=== PATIENT | male | born 1940 | race Caucasian/White ===

== ENCOUNTER 2017-01-09 03:15 | Observation (INO) ==
[2017-01-09] MEDS ORDERED: Furosemide 40 MG/4 ML VIAL IVP ONE (03:23)
--- NOTE | 2017-01-09 03:26 | Emergency Department Note ---
Disposition Clinical Impression: CHF (congestive heart failure) Qualifiers: Congestive heart failure type: systolic Congestive heart failure chronicity: acute Qualified Code(s): I50.21 - Acute systolic (congestive) heart failure Disposition: Admitted As Inpatient Condition: Good Referrals: Kamron Koch MD [Primary Care Provider] - Forms: ED Satisfaction Letter Time of Disposition: 06:09 SOB HPI - General Chief Complaint: ED Shortness of Breath/Dyspnea Stated Complaint: SHORT OF BREATH Time Seen by Provider: 01/09/17 03:20 Source: patient Mode of arrival: ambulatory Limitations: no limitations Nursing Notes Reviewed: Yes Vital Signs Reviewed: Yes - History of Present Illness 76-year-old white male with difficulty breathing. He denies cough. He denies chest pain. He states his symptoms started approximately 3 weeks ago. He states he is only able to sleep a couple hours at night. He says he has trouble lying down and sleeping, shortness of breath gets worse. He states he saw his primary care physician who did a CT scan this past Friday. No fever. No abdominal pain. No leg swelling. Pt Subjective Complaint: shortness of breath Onset (ago): week(s) (3) Context: other (History of atrial fibrillation) Severity: moderate Consistency/Duration: intermittent Improves with: upright position Worsens with: lying flat Known history of: other (Atrial fibrillation) Associated symptoms: Reports: denies other symptoms Treatment prior to arrival: none Cough present: No - Related Data Home oxygen amount: none Home Medications Medication Instructions Recorded Confirmed Aspirin 325 mg PO DAILY 05/18/15 01/09/17 Atorvastatin [Lipitor] 40 mg PO HS 05/18/15 01/09/17 Isosorbide MONOnitrate (24 HR) 30 mg PO DAILY 05/18/15 01/09/17 [Imdur] Losartan Potassium [Cozaar] 100 mg PO DAILY 05/18/15 01/09/17 Rivaroxaban [Xarelto] 20 mg PO DAILY 05/18/15 01/09/17 Previous Rx's Medication Instructions Recorded Bumetanide [Bumex] 0.5 mg PO DAILY #30 tablet 05/20/15 Lactobacillus [Culturelle] 1 each PO BID #10 cap.sprink 05/20/15 Metoprolol [Lopressor] 100 mg PO BID #60 tablet 05/20/15 Allergies Allergy/AdvReac Type Severity Reaction Status Date / Time No Known Allergies Allergy Verified 01/09/17 03:17 All systems ED: reviewed and negative except as stated. Constitutional: Denies: fever, chills ENT ED: Denies: ear pain, throat pain Cardiovascular: Denies: chest pain Respiratory: Reports: dyspnea, wheezes. Denies: cough Gastrointestinal: Denies: abdominal pain, nausea, vomiting, diarrhea Genitourinary: Denies: urgency, dysuria Musculoskeletal: Denies: back pain, neck pain Past Medical History - Past Medical History Medical history: Reports: arthritis, atrial fibrillation, CHF, coronary artery disease, GERD, hyperlipidemia, hypertension, other Surgical history: Reports: coronary bypass (CABG) Psychiatric history: Reports: no psych history - Social History Smoking Status: Never smoker Smokeless Tobacco Status: No Alcohol use: Reports: none Drug use: Reports: none Physical Exam - General Limitations: no limitations General appearance: alert, in no apparent distress - Head Head exam: atraumatic, normocephalic - Eye Eye exam: Present: PERRL, EOMI. Absent: scleral icterus, conjunctival injection - ENT ENT exam: normal oropharynx, mucous membranes moist, TM's normal bilaterally - Neck Neck exam: Present: normal inspection, full ROM, trachea midline. Absent: tenderness, lymphadenopathy - Chest Chest inspection: Present: normal inspection, symmetric chest wall rise - Respiratory Respiratory exam: Present: other (Decreased breath sounds in the bases). Absent : respiratory distress, wheezes, stridor, accessory muscle use, prolonged expiratory phase - Cardiovascular Cardiovascular exam: Present: regular rate, irregular rhythm. Absent: systolic murmur, diastolic murmur, gallop - Abdominal Exam Abdominal exam: Present: soft, Non-Tender. Absent: organomegaly, mass - Extremities Exam Extremities exam: Present: normal inspection, full ROM, normal capillary refill. Absent: tenderness - Neurological Exam Neurological exam: Present: alert, oriented X3, normal gait. Absent: motor sensory deficit - Psychiatric Psychiatric exam: Present: normal affect, normal mood - Skin Skin exam: Present: warm, dry, intact, normal color Course - Reevaluation(s) Reevaluation #1: He is diuresed well with Lasix. He clinically felt better. His O2 saturations are good. His heart rate remained between 90 and 1:15. His initial troponin was 0.03, his repeat troponin was 0.04. He has never had any chest pain. Had the difficulty breathing on and off for 3 weeks, primarily at night. My index of concern for an N STEMI is low. I discussed the case with Dr. Méndez. He is agreeable with observation admission. The patient and family are agreeable. Time: 06:08 Vital Signs Temperature 98.8 F 01/09/17 03:19 Pulse Rate 88 01/09/17 03:19 Respiratory Rate 24 01/09/17 03:19 Blood Pressure 168/119 01/09/17 03:19 O2 Sat by Pulse Oximetry 93 01/09/17 03:19 Temperature 98.8 F 01/09/17 04:41 Pulse Rate 105 01/09/17 06:04 Respiratory Rate 16 01/09/17 05:21 Blood Pressure 155/103 01/09/17 06:04 O2 Sat by Pulse Oximetry 98 01/09/17 06:04 Oxygen Delivery Oxygen Delivery Room Air Shortness of Breath/Dyspnea - MDM Narrative Medical decision making narrative: Differential includes but is not limited to pleural effusion, congestive heart failure, pneumonia, pneumothorax, pneumonia, pulmonary embolus. - Lab Data Lab results reviewed: Yes I reviewed the patient's lab results. Result diagrams: 01/09/17 03:34 01/09/17 03:34 Lab Results 01/09/17 01/09/17 01/09/17 Range/Units 03:34 03:34 03:34 WBC 7.4 (4.3-11.1) K/mcL RBC 4.29 (4.19-5.50) M/mcL Hgb 13.5 (12.9-16.9) g/dL Hct 41.7 (37.5-50.1) % MCV 97.2 (83.0-100.0) fL MCH 31.5 (28.0-33.3) pg MCHC 32.4 (31.6-35.5) g/dL RDW 14.6 H (11.5-14.5) % Plt Count 247 (140-400) K/mcL MPV 9.6 (9.4-12.4) fL Immature Gran % 0.4 (0-4) % Seg Neutrophils % 80.8 % Lymphocytes % 7.5 % Monocytes % 8.1 % Eosinophils % 2.7 % Basophils % 0.5 % Neutrophils # 6.0 (1.6-8.9) K/mcL Lymphocytes # 0.6 (0.6-4.6) K/mcL Monocytes # 0.6 (0.0-1.3) K/mcL Eosinophils # 0.2 (0.0-0.6) K/mcL Basophils # 0.0 (0.0-0.2) K/mcL PT (9.4-12.1) Seconds INR Sodium 144 (136-145) mEq/L Potassium 4.2 (3.5-4.5) mEq/L Chloride 105 (98-109) mEq/L Carbon Dioxide 27 (19-29) mEq/L BUN 24 (8-26) mg/dL Creatinine 1.04 (0.72-1.25) mg/dL Est GFR ( Amer) > 60 (> 60) Est GFR (Non-Af Amer) > 60 (> 60) BUN/Creatinine Ratio 23 (6-26) Glucose 150 H (70-99) mg/dL Calculated Osmolality 305 H (280-300) Calcium 9.6 (8.6-10.8) mg/dL Total Bilirubin 1.5 H (0.2-1.2) mg/dL AST 20 (5-34) Units/L ALT 17 (0-55) Units/L Alkaline Phosphatase 107 (38-126) Units/L Troponin I 0.03 (0-0.03) ng/mL B-Natriuretic Peptide (0-100) pg/mL Serum Total Protein 7.1 (6.0-8.3) g/dL Albumin 3.5 (3.5-5.0) g/dL Globulin 3.6 H (2.4-3.5) g/dL Albumin/Globulin Ratio 1.0 L (1.1-2.2) 01/09/17 01/09/17 01/09/17 Range/Units 03:34 03:34 05:37 WBC (4.3-11.1) K/mcL RBC (4.19-5.50) M/mcL Hgb (12.9-16.9) g/dL Hct (37.5-50.1) % MCV (83.0-100.0) fL MCH (28.0-33.3) pg MCHC (31.6-35.5) g/dL RDW (11.5-14.5) % Plt Count (140-400) K/mcL MPV (9.4-12.4) fL Immature Gran % (0-4) % Seg Neutrophils % % Lymphocytes % % Monocytes % % Eosinophils % % Basophils % % Neutrophils # (1.6-8.9) K/mcL Lymphocytes # (0.6-4.6) K/mcL Monocytes # (0.0-1.3) K/mcL Eosinophils # (0.0-0.6) K/mcL Basophils # (0.0-0.2) K/mcL PT 29.3 H (9.4-12.1) Seconds INR 2.7 Sodium (136-145) mEq/L Potassium (3.5-4.5) mEq/L Chloride (98-109) mEq/L Carbon Dioxide (19-29) mEq/L BUN (8-26) mg/dL Creatinine (0.72-1.25) mg/dL Est GFR ( Amer) (> 60) Est GFR (Non-Af Amer) (> 60) BUN/Creatinine Ratio (6-26) Glucose (70-99) mg/dL Calculated Osmolality (280-300) Calcium (8.6-10.8) mg/dL Total Bilirubin (0.2-1.2) mg/dL AST (5-34) Units/L ALT (0-55) Units/L Alkaline Phosphatase (38-126) Units/L Troponin I 0.04 H* (0-0.03) ng/mL B-Natriuretic Peptide 2672 H (0-100) pg/mL Serum Total Protein (6.0-8.3) g/dL Albumin (3.5-5.0) g/dL Globulin (2.4-3.5) g/dL Albumin/Globulin Ratio (1.1-2.2) - Radiology Data Radiology results reviewed: Yes I reviewed the patient's radiology results. Impressions Chest X-Ray 01/09/17 03:22 IMPRESSION: Persistent bilateral pleural effusions, please see recent chest CT for further detail. D/ / Tommy Hannah MD / Tommy Hannah MD Interpreting Provider: Tommy Hannah MD - EKG Data EKG attestation: Yes I reviewed and interpreted this EKG. EKG results narrative: Atrial fibrillation, rate of 109, T-wave flattening in the lateral leads. Rhythm strip shows atrial fibrillation with rate of 109, QRS 101 ms with no other ectopy is interpreted by me. This is compared to a tracing dated 05/19/15, the atrial fibrillation is chronic, the T-wave flattening is slightly more pronounced
[2017-01-09 03:41] LABS: Basophils % 0.5 %; Eosinophils # 0.2 K/mcL (0.0-0.6); Eosinophils % 2.7 %; Hematocrit 41.7 % (37.5-50.1); Hemoglobin 13.5 g/dL (12.9-16.9); Immature Granulocytes % 0.4 % (0-4); Lymphocytes # 0.6 K/mcL (0.6-4.6); Lymphocytes % 7.5 %; Mean Corpuscular HGB Conc 32.4 g/dL (31.6-35.5); Mean Corpuscular Hemoglobin 31.5 pg (28.0-33.3); Mean Corpuscular Volume 97.2 fL (83.0-100.0); Mean Platelet Volume 9.6 fL (9.4-12.4); Monocytes # 0.6 K/mcL (0.0-1.3); Monocytes % 8.1 %; Platelet Count 247 K/mcL (140-400); Red Blood Count 4.29 M/mcL (4.19-5.50); Red Cell Distribution Width 14.6 % (11.5-14.5); Segmented Neutrophils % 80.8 %
[2017-01-09 03:46] LABS: INR 2.7; Prothrombin Time 29.3 Seconds (9.4-12.1)
[2017-01-09 03:59] LABS: Alanine Aminotransferase 17 Units/L (0-55); Albumin 3.5 g/dL (3.5-5.0); Alkaline Phosphatase 107 Units/L (38-126); Aspartate Amino Transferase 20 Units/L (5-34); BUN/Creatinine Ratio 23 (6-26); Bilirubin,Total 1.5 mg/dL (0.2-1.2); Blood Urea Nitrogen 24 mg/dL (8-26); Calcium 9.6 mg/dL (8.6-10.8); Carbon Dioxide 27 mEq/L (19-29); Chloride 105 mEq/L (98-109); Globulin 3.6 g/dL (2.4-3.5); Glucose 150 mg/dL (70-99); Osmolality,Calculated 305 (280-300); Potassium 4.2 mEq/L (3.5-4.5); Sodium 144 mEq/L (136-145); Total Protein 7.1 g/dL (6.0-8.3); eGFR For African Americans > 60 (> 60); eGFR For Non-African Americans > 60 (> 60)
[2017-01-09] MEDS ORDERED: Naloxone 0.4 MG/ML INJ IVP PRN (06:38)
[2017-01-09] MEDS ORDERED: Aspirin 325 MG TABLET PO SCH (09:00)
[2017-01-09] MEDS ORDERED: Isosorbide MONOnitrate (24 HR) 30 MG TAB.ER.24H PO SCH (09:00)
[2017-01-09] MEDS: Lactobacillus 1 EACH CAP.SPRINK PO SCH ×2 (09:13→19:53)
[2017-01-09] MEDS ORDERED: Isosorbide MONOnitrate (24 HR) 60 MG TAB.ER.24H PO SCH (11:45)
--- NOTE | 2017-01-09 11:51 | Internal Med History&Physical ---
Date of Encounter: 01/09/17 Time of Encounter: 11:10 Assessment and Plan (1) Dyspnea Current visit: Yes Status: Acute Probably multifactorial in origin with bilateral pleural effusions, significant systolic heart failure, and possible superimposed infection. An echocardiogram will be ordered to further evaluate. IV diuretics will be started with higher dose isosorbide. Lanoxin and/ or spironolactone may be needed. Qualifiers: Dyspnea type: shortness of breath Qualified Code(s): R06.02 - Shortness of breath; R06.00 - Dyspnea, unspecified; R06.01 - Orthopnea (2) Pleural effusion Current visit: Yes Status: Acute Possibly multifactorial origin including systolic heart failure with possible parapneumonic etiology. Will order echo as per above and start Rocephin empirically. Recheck labs in a.m. (3) Hyperglycemia Current visit: Yes Status: Acute We will check hemoglobin A1c in a.m. (4) Atrial fibrillation Current visit: Yes Status: Acute Hold Xarelto and aspirin for possible thoracentesis in 1-2 days. Qualifiers: Atrial fibrillation type: chronic Qualified Code(s): I48.2 - Chronic atrial fibrillation Internal Medicine - H&P: HPI Chief complaint: Dyspnea Admitted From: Home Plans for Post Hospital Care: Home History of present illness: Mr. Hinojosa is a 76 year old male who came to emergency room complaining of dyspnea onset approximately 4 weeks ago. He states it gradually progressed and became so severe today he felt he needed to come to emergency room. He was evaluated and found to have evidence of heart failure with bilateral pleural effusions. He was admitted to [facility] floor for ongoing care needs. He denies chest pain or cough. His PCP Dr. Kamron Koch ordered chest CT to further evaluate the dyspnea. It was completed 01/06/2017 and showed a moderate right pleural effusion which was new from previous CT scan in May 2013. He has chronic left pleural effusion. Respiratory history significant for essentially being a lifelong nonsmoker and having no documented chronic lung disease. Cardiovascular history is significant for hypertension. 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 His most recent stress test was in 2010. He has chronic atrial fibrillation and was on Multaq for many years but discontinued in February 2015 after insurance did not cover the cost. He takes Xarelto and aspirin. He has known systolic heart failure with echocardiogram 07/11/2015 showing LVEF of 35% which was improved from 25% seen on an echo approximate one month previously. He had AI, MR, TR, and PI seen on the May 2015 echo. He denies DVT or pulmonary embolus. Past Med Surg Social Fam HX - Past Medical History Medical history: arthritis, atrial fibrillation, CHF, coronary artery disease, GERD, hyperlipidemia, hypertension, other Psychiatric history: no psych history - Past Surgical History Surgical History: coronary bypass (CABG) - Social History Smoking Status: Never smoker Smokeless Tobacco Status: No Alcohol use: none Drug use: none Internal Medicine - H&P: Meds Aspirin 325 mg PO DAILY 05/18/15 [History] Atorvastatin [Lipitor] 40 mg PO HS 05/18/15 [History] Isosorbide MONOnitrate (24 HR) [Imdur] 30 mg PO DAILY 05/18/15 [History] Losartan Potassium [Cozaar] 100 mg PO DAILY 05/18/15 [History] Rivaroxaban [Xarelto] 20 mg PO DAILY 05/18/15 [History] Bumetanide [Bumex] 0.5 mg PO DAILY #30 tablet 05/20/15 [Rx] Lactobacillus [Culturelle] 1 each PO BID #10 cap.sprink 05/20/15 [Rx] Metoprolol [Lopressor] 100 mg PO BID #60 tablet 05/20/15 [Rx] 3 Allergy/AdvReac Type Severity Reaction Status Date / Time No Known Allergies Allergy Verified 01/09/17 03:17 All Systems PM: A 10-system review of systems was performed and is negative for pertinent findings except as documented above in the HPI. Review of systems: Review of systems from his May 2015 [facility] hospitalization were reviewed and revised as below. Gen.: His weight has decreased from 84.459 kg on 05/20/2015 to 77.111 kg on admission today Cardiovascular: As per history of present illness Respiratory: As per history of present illness GI: He denies disorders of his liver gallbladder or exocrine pancreas : He had hematuria resulting in cystoscopy June 2014 which showed no significant abnormalities. He denies other kidney or bladder or prostate disorders. Neurologic: Denies large distribution strokes or seizures. Endocrine: He has hyperlipidemia but no known diabetes or thyroid disease. Hematology/oncology: Denies blood disorders cancers or anemia Psychiatric: He denies anxiety depression or other mental health issues Musk skeletal: He has DJD no known gout or osteoporosis. - Constitutional Vitals: Temp Pulse Resp BP Pulse Ox 97.9 F 80 18 131/84 96 01/09/17 10:09 01/09/17 10:09 01/09/17 10:09 01/09/17 10:09 01/09/17 10:09 Exam: Gen.: He is a well-developed well-nourished male sitting on the side of bed who appears comfortable at rest and in no acute distress HEENT: Head is atraumatic and normocephalic. Eyes: EOMI. There is no scleral icterus. Mouth: Mucosa is moist. Neck: Supple and nontender. There is no thyromegaly or adenopathy noted. Heart: Irregularly irregular with rate approximately 80/m Lungs: No wheezes or crackles are heard. He has diminished breath sounds at the bases bilaterally. Abdomen: Soft and nontender. No masses or guarding are noted. Extremities: He has 1+ edema of the dorsum of the right foot in the lower right leg. There is no edema on the left foot. 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 He has minimal DJD changes of his hands. Neurologic: Mental status: He is talkative and a good historian. Cranial nerves : Smile is symmetric. Forehead wrinkles bilaterally. Tongue protrudes midline. EOMI. Motor: There is no pronator drift. Cerebellar: Finger to nose is intact bilaterally. Skin: Warm and dry Internal Med - H&P Results - Labs CBC & Chem 7: 01/09/17 03:34 01/09/17 03:34 Labs: Cardiac Enzymes 01/09/17 Range/Units 07:05 Troponin I 0.04 H* (0-0.03) ng/mL - VTE Reasons for not Prescribing Prophylaxis: Not indicated-Anticoagulated or INR therapeutic
[2017-01-09] MEDS ORDERED: cefTRIAXone 1,000 MG in Water for inj. (sterile) 10 ML IVP SCH (12:00)
[2017-01-09] MEDS ORDERED: *HR* Rivaroxaban 10 MG TABLET PO SCH (17:00)
[2017-01-09] MEDS: Furosemide 40 MG/4 ML VIAL IVP SCH ×2 (17:07→17:11)
[2017-01-10 05:56] LABS: Basophils # 0.1 K/mcL (0.0-0.2); Basophils % 0.8 %; Eosinophils # 0.2 K/mcL (0.0-0.6); Hematocrit 39.6 % (37.5-50.1); Immature Granulocytes % 0.2 % (0-4); Lymphocytes # 0.5 K/mcL (0.6-4.6); Lymphocytes % 7.3 %; Mean Corpuscular HGB Conc 32.8 g/dL (31.6-35.5); Mean Corpuscular Hemoglobin 31.5 pg (28.0-33.3); Mean Corpuscular Volume 95.9 fL (83.0-100.0); Mean Platelet Volume 10.4 fL (9.4-12.4); Monocytes # 0.7 K/mcL (0.0-1.3); Monocytes % 10.8 %; Neutrophils # 5.1 K/mcL (1.6-8.9); Platelet Count 213 K/mcL (140-400); Red Blood Count 4.13 M/mcL (4.19-5.50); Red Cell Distribution Width 14.2 % (11.5-14.5); Segmented Neutrophils % 77.9 %
[2017-01-10 06:15] LABS: BUN/Creatinine Ratio 23 (6-26); Blood Urea Nitrogen 21 mg/dL (8-26); Calcium 9.3 mg/dL (8.6-10.8); Carbon Dioxide 32 mEq/L (19-29); Chloride 101 mEq/L (98-109); Glucose 94 mg/dL (70-99); Magnesium 1.8 mg/dL (1.6-2.6); Osmolality,Calculated 301 (280-300); Potassium 3.5 mEq/L (3.5-4.5); Sodium 144 mEq/L (136-145); eGFR For African Americans > 60 (> 60); eGFR For Non-African Americans > 60 (> 60)
[2017-01-10 06:43] LABS: INR 1.7
[2017-01-10 09:47] LABS: Hemoglobin A1C 5.2 %
[2017-01-10] MEDS: Lactobacillus 1 EACH CAP.SPRINK PO SCH ×2 (09:47→20:10)
[2017-01-10] MEDS: Isosorbide MONOnitrate (24 HR) 60 MG TAB.ER.24H PO SCH (09:49)
[2017-01-10] MEDS: Furosemide 40 MG/4 ML VIAL IVP SCH ×2 (09:49→17:02)
--- NOTE | 2017-01-10 10:15 | Internal Med Progress Note ---
Date of Encounter: 01/10/17 Time of Encounter: 10:05 - Assessment and plan (1) Dyspnea Current Visit: Yes Status: Acute Assessment and plan: January 10. Continue present medications. Echo report is pending. Qualifiers: Dyspnea type: shortness of breath Qualified Code(s): R06.02 - Shortness of breath; R06.00 - Dyspnea, unspecified; R06.01 - Orthopnea (2) Pleural effusion Current Visit: Yes Status: Acute Assessment and plan: January 10. Aspirin above. (3) Hyperglycemia Current Visit: Yes Status: Acute Assessment and plan: January 10. Hemoglobin A1c was acceptable at 5.2%. (4) Atrial fibrillation Current Visit: Yes Status: Acute Assessment and plan: January 10. Continue to hold Xarelto and aspirin for possible thoracentesis. Qualifiers: Atrial fibrillation type: chronic Qualified Code(s): I48.2 - Chronic atrial fibrillation - Subjective Interval history: January 10. He has no new complaints and states his dyspnea has lessened. - Constitutional Vitals: Temp Pulse Resp BP Pulse Ox 98.7 F 80 18 135/85 96 01/10/17 04:42 01/10/17 04:42 01/10/17 04:42 01/10/17 04:42 01/10/17 07:49 Exam: He is sitting on the side of the bed resting comfortably and appears in no distress. His edema in the right leg has lessened. I reviewed his medications and lab results. Internal Medicine: Result - Labs CBC & Chem 7: 01/10/17 05:23 01/10/17 05:23 Labs: Short CBC 01/10/17 Range/Units 05:23 WBC 6.6 (4.3-11.1) K/mcL Hgb 13.0 (12.9-16.9) g/dL Hct 39.6 (37.5-50.1) % Plt Count 213 (140-400) K/mcL Neutrophils # 5.1 (1.6-8.9) K/mcL BMP 01/10/17 05:23 Sodium 144 Potassium 3.5 Chloride 101 Carbon Dioxide 32 H BUN 21 Creatinine 0.93 Glucose 94 Calcium 9.3 Cardiac Enzymes 01/09/17 01/09/17 Range/Units 13:01 18:15 Troponin I 0.04 H* 0.05 H* (0-0.03) ng/mL - ABG Interpretation ABG results: PT/INR, D-dimer PT 19.0 Seconds (9.4-12.1) H 01/10/17 05:23 D-Dimer 1857 ng/mLFEU (0-500) H 01/09/17 11:37 - VTE Reasons for not Prescribing Prophylaxis: Not indicated-Anticoagulated or INR therapeutic Consult Discharge Plan - Plan Referrals: Kamron Koch MD [Primary Care Provider] - 1 week
--- NOTE | 2017-01-10 14:08 | Electrocardiograph Report ---
[place] [id number] Test Date: 2017-01-09 Pat Name: Reno Hinojosa Department: [id number] Room: [facility] Gender: M [employer]: [id number] : 1940 Requested By: Oswaldo Jaime Order Number: [id number] Reading MD: Devan Dawson DO Measurements Intervals [place] Rate: 109 P: TN: 0 QRS: 92 QRSD: 101 T: 97 QT: 319 QTc: 383 Interpretive Statements ATRIAL FIBRILLATION WITH RAPID VENTRICULAR RESPONSE Rightward axis Nonspecific ST-T changes Electronically Signed On 01-10-2017 14:07:06 EST by Devan Dawson DO
[2017-01-10] MEDS: cefTRIAXone 1,000 MG in Water for inj. (sterile) 10 ML IVP SCH (14:30)
[2017-01-11 06:23] LABS: Basophils # 0.1 K/mcL (0.0-0.2); Basophils % 0.8 %; Eosinophils # 0.2 K/mcL (0.0-0.6); Eosinophils % 3.5 %; Hematocrit 38.2 % (37.5-50.1); Hemoglobin 12.6 g/dL (12.9-16.9); Immature Granulocytes % 0.2 % (0-4); Lymphocytes # 0.5 K/mcL (0.6-4.6); Lymphocytes % 7.7 %; Mean Corpuscular Hemoglobin 31.7 pg (28.0-33.3); Mean Platelet Volume 10.6 fL (9.4-12.4); Monocytes # 0.8 K/mcL (0.0-1.3); Neutrophils # 4.8 K/mcL (1.6-8.9); Platelet Count 214 K/mcL (140-400); Red Blood Count 3.98 M/mcL (4.19-5.50); Segmented Neutrophils % 75.8 %
[2017-01-11 06:41] LABS: BUN/Creatinine Ratio 27 (6-26); Blood Urea Nitrogen 24 mg/dL (8-26); Calcium 9.2 mg/dL (8.6-10.8); Carbon Dioxide 31 mEq/L (19-29); Chloride 100 mEq/L (98-109); Glucose 92 mg/dL (70-99); Osmolality,Calculated 298 (280-300); Potassium 3.8 mEq/L (3.5-4.5); Sodium 142 mEq/L (136-145); eGFR For African Americans > 60 (> 60); eGFR For Non-African Americans > 60 (> 60)
[2017-01-11] MEDS: Isosorbide MONOnitrate (24 HR) 60 MG TAB.ER.24H PO SCH (09:03)
[2017-01-11] MEDS: Lactobacillus 1 EACH CAP.SPRINK PO SCH (09:03)
[2017-01-11] MEDS: Furosemide 40 MG/4 ML VIAL IVP SCH (09:04)
[2017-01-11 10:23] VITALS: BP 108/70
[2017-01-11] MEDS: cefTRIAXone 1,000 MG in Water for inj. (sterile) 10 ML IVP SCH (12:23)
--- NOTE | 2017-01-11 14:45 | Discharge Summary ---
Date of Encounter: 01/11/17 Time of Encounter: 14:30 - Discharge Diagnosis (1) Congestive heart failure Priority: Primary Status: Acute Qualifiers: Congestive heart failure type: systolic Congestive heart failure chronicity : acute on chronic Qualified Code(s): I50.23 - Acute on chronic systolic ( congestive) heart failure (2) Pleural effusion Priority: Secondary Status: Acute (3) Hyperglycemia Priority: Secondary Status: Resolved (4) Atrial fibrillation Priority: Secondary Status: Chronic Qualifiers: Atrial fibrillation type: chronic Qualified Code(s): I48.2 - Chronic atrial fibrillation - Discharge Medications Prescriptions: Cefuroxime PO [Ceftin] 500 mg PO Q12HR #6 tablet Azithromycin [Zithromax] 250 mg PO DAILY #3 tablet Bumetanide [Bumex] 1 mg PO DAILY #30 tablet Isosorbide MONOnitrate (24 HR) [Imdur] 60 mg PO DAILY #30 tab.er.24h Lactobacillus [Culturelle] 1 each PO BID #6 cap.sprink Potassium Chloride 10 meq PO BIDWM #60 tab.er.prt Home Medications: Aspirin 325 mg PO DAILY 05/18/15 [History] Atorvastatin [Lipitor] 40 mg PO HS 05/18/15 [History] Losartan Potassium [Cozaar] 100 mg PO DAILY 05/18/15 [History] Rivaroxaban [Xarelto] 20 mg PO DAILY 05/18/15 [History] Lactobacillus [Culturelle] 1 each PO BID #10 cap.sprink 05/20/15 [Rx] Metoprolol [Lopressor] 100 mg PO BID #60 tablet 05/20/15 [Rx] Azithromycin [Zithromax] 250 mg PO DAILY #3 tablet 01/11/17 [Rx] Bumetanide [Bumex] 1 mg PO DAILY #30 tablet 01/11/17 [Rx] Cefuroxime PO [Ceftin] 500 mg PO Q12HR #6 tablet 01/11/17 [Rx] Isosorbide MONOnitrate (24 HR) [Imdur] 60 mg PO DAILY #30 tab.er.24h 01/11/17 [ Rx] Lactobacillus [Culturelle] 1 each PO BID #6 cap.sprink 01/11/17 [Rx] Potassium Chloride 10 meq PO BIDWM #60 tab.er.prt 01/11/17 [Rx] Allergies/Adverse Reactions: 3 Allergy/AdvReac Type Severity Reaction Status Date / Time No Known Allergies Allergy Verified 01/09/17 03:17 Procedures/tests Complete & Pending: Procedures Performed prior 72 hours Category Date Time Status EV echocardiogram Routine Y 01/09/17 11:37 Completed Venous Doppler [EV venous imaging LE RT] Routine Y 01/09/17 12:33 Completed Date of admission: 01/09/17 06:22 Primary care physician: Kamron Koch MD - Patient Status Disposition: Home, Self-Care Condition: Good Functional capacity at discharge: independent ambulation Overall status at discharge: patient is progressing back to baseline - Discharge Instructions Follow Up With: Kamron Koch MD [Primary Care Provider] - 1 week - Diet and Activity Activity: resume usual activities as tolerated Diet: advance to your usual diet Hospital course: Mr. Hinojosa is a 76 year old male who came to emergency room complaining of dyspnea onset approximately 4 weeks ago. He states it gradually progressed and became so severe today he felt he needed to come to emergency room. He was evaluated and found to have evidence of heart failure with bilateral pleural effusions. He was admitted to [facility] for ongoing care needs. Initial orders were written by the emergency room physician. I saw him on January 09 and performed a history and physical. He was started on IV Lasix. Higher dose isosorbide was given. Cozaar and metoprolol were continued as at home. Antibiotics and probiotics were given since there was a left shift on the differential although WBC remained normal. He had clinical improvement with BN peptide decreasing to 1275 by the day of discharge. Follow-up chest x- ray showed decrease in effusions and vascular congestion. He will continue with antibiotics and probiotic for 3 additional days at discharge. An echocardiogram showed LVEF of 40% which is slightly improved from the June 2015 echocardiogram. There was worsening of the known aortic insufficiency and mitral regurgitation to a moderate-severe level for each valve. I explained to the patient that medication might offer some symptomatic improvement but it is not unlikely he would progress to the point consideration for valve replacement surgery might be needed. He can discuss this further with Dr. Koch who can refer him as needed. His azotemia improved with treatment with creatinine decreasing to 0.88 and estimated GFR remaining greater than 60. Hemoglobin A1c returned acceptable at 5.2%. He will be discharged home and follow with his PCP Dr. Kamron Koch within 1 week. - Time Spent with Patient Total time spent providing and/or coordinating discharge services: - Constitutional Vitals: Temp Pulse Resp BP Pulse Ox 97.8 F 75 16 108/70 96 01/11/17 10:20 01/11/17 10:20 01/11/17 10:20 01/11/17 10:20 01/11/17 10:20 - VTE Reasons for not Prescribing Prophylaxis: Not indicated-Anticoagulated or INR therapeutic
== END 2017-01-11 15:50 | disposition home or self-care (01) ==
LOC: INPPIK 03:15 → EMEROOPIK 03:15 → INPPIK 06:37
PROVIDERS: ADMIT Internal Medicine; ATTEND Internal Medicine